=== PATIENT | female | born 1990 | race African-American/Black ===

== ENCOUNTER 2017-07-21 16:05 | Emergency (ER) | payer MEDICAID, OTHER ==
[~2017-07-21] VITALS: Ht 165.1 cm; Wt 73.3 kg
[~2017-07-21 16:05] MED LIST: DOXY100C15 PO
[2017-07-21 18:35] VITALS: BP 130/83
== END 2017-07-21 18:40 | disposition home or self-care (01) ==
LOC: ED 18:20
DX: O26.891 Other specified pregnancy related conditions, first trimester (principal); J02.8 Acute pharyngitis due to other specified organisms; Z3A.01 Less than 8 weeks gestation of pregnancy
CPT/HCPCS: 99283